=== PATIENT | female | born 1985 | race Caucasian/White ===

== ENCOUNTER 2018-10-22 12:29 | Emergency (ER) | payer OTHER ==
[~2018-10-22] VITALS: Ht 165.1 cm; Wt 80.3 kg
[2018-10-22] MEDS ORDERED: KETOROLAC 30 MG/ML VIAL. IV ONE (12:45)
[2018-10-22] MEDS ORDERED: IV NORMAL SALINE 1,000ML 1,000 ML IV ONE (12:45)
[2018-10-22] MEDS ORDERED: ONDANSETRON PF 4 MG/2 ML VIAL. IV ONE (12:45)
[2018-10-22 12:53] LABS: BASO % 0 % (0-3); EOS % 0 % (0-3); HEMATOCRIT 40.4 % (36.0-47.0); HEMOGLOBIN 13.8 g/dL (12.0-15.5); LYMPH # 0.8 x10^3/uL (1.0-4.8); LYMPH % 6 % (24-48); MEAN CORPUSCULAR HEMOGLOBIN 34 pg (25-35); MEAN CORPUSCULAR HGB CONC 34 g/dL (31-37); MEAN CORPUSCULAR VOLUME 99 fL (79-100); MONO # 0.7 x10^3/uL (0.0-1.1); MONO % 6 % (0-9); NEUT # 11.9 x10^3uL (1.8-7.7); NEUT % 88 % (31-73); PLATELET COUNT 217 x10^3/uL (140-400); RED CELL DISTRIBUTION WIDTH 13.6 % (11.5-14.5); WHITE BLOOD COUNT 13.5 x10^3/uL (4.0-11.0)
[2018-10-22 13:06] LABS: ALBUMIN 3.8 g/dL (3.4-5.0); ALBUMIN/GLOBULIN RATIO 0.9 (1.0-1.7); CALCIUM 9.2 mg/dL (8.5-10.1); CREATININE 1.3 mg/dL (0.6-1.0); GFR 47.2; POTASSIUM 3.3 mmol/L (3.5-5.1); TOTAL BILIRUBIN 0.9 mg/dL (0.2-1.0); TOTAL PROTEIN 7.9 g/dL (6.4-8.2)
--- NOTE | 2018-10-22 13:13 | PHYS DOC ---
Past History Past Medical History: No Pertinent History Past Surgical History: No Surgical History Drug Use: None Adult General Chief Complaint Chief Complaint: ABDOMINAL PAIN HPI HPI 33-year-old female presents with epigastric abdominal pain. The patient has had intermittent pain for last 5 months. She has seen her PCP who scheduled an ultrasound of the right upper quadrant, but the study has not been completed yet. The patient presents today because she has had a significant increase in her epigastric pain for the last 3 days. It is nearly constant and a moderate to severe cramping. It comes and goes in waves. She's been unable to keep down any solid food. She is able to drink water sometimes. She is still having 4-6 episodes of emesis and/or diarrhea today. She's also had measured fever at home up to 103. Review of Systems Review of Systems Constitutional: Fever and chills[] Eyes: Denies change in visual acuity, redness, or eye pain [] HENT: Denies nasal congestion or sore throat [] Respiratory: Denies cough or shortness of breath [] Cardiovascular: No additional information not addressed in HPI [] GI: abdominal pain, nausea, vomiting, diarrhea [] : Denies dysuria or hematuria [] Musculoskeletal: Denies back pain or joint pain [] Integument: Denies rash or skin lesions [] Neurologic: Denies headache, focal weakness or sensory changes [] Endocrine: Denies polyuria or polydipsia [] All other systems were reviewed and found to be within normal limits, except as documented in this note. Current Medications Current Medications Current Medications Medications (Trade) Dose Ordered Sig/[facility] Start Time Stop Time Status Last Admin Dose Admin Ketorolac Tromethamine (Toradol 30mg Vial) 30 mg 1X ONCE 10/22/18 12:45 10/22/18 12:46 DC 10/22/18 12:58 30 MG Ondansetron HCl (Zofran) 4 mg 1X ONCE 10/22/18 12:45 10/22/18 12:46 DC 10/22/18 12:57 4 MG Sodium Chloride 1,000 ml @ 1,000 mls/hr 1X ONCE 10/22/18 12:45 10/22/18 13:44 10/22/18 12:55 1,000 MLS/HR Allergies Allergies Allergies Coded Allergies Type Severity Reaction Last Updated Verified Iodinated Contrast- Oral and IV Dye Allergy Severe Anaphylaxis 10/22/18 Yes Sulfa (Sulfonamide Antibiotics) Allergy Unknown 10/22/18 Yes Physical Exam Physical Exam Constitutional: Well developed, well nourished, no acute distress, non-toxic appearance. [] HENT: Normocephalic, atraumatic, bilateral external ears normal, oropharynx moist, no oral exudates, nose normal. [] Eyes: PERRLA, EOMI, conjunctiva normal, no discharge. [] Neck: Normal range of motion, no tenderness, supple, no stridor. [] Cardiovascular:Heart rate regular rhythm, no murmur [] Lungs & Thorax: Bilateral breath sounds clear to auscultation [] Abdomen: Bowel sounds normal, soft, moderate to severe tenderness of the right upper quadrant and epigastric region, no masses, no pulsatile masses. [] Skin: Warm, dry, no erythema, no rash. [] Back: No tenderness, no CVA tenderness. [] Extremities: No tenderness, no cyanosis, no clubbing, ROM intact, no edema. [] Neurologic: Alert and oriented X 3, normal motor function, normal sensory function, no focal deficits noted. [] Psychologic: Affect normal, judgement normal, mood normal. [] Current Patient Data Vital Signs Vital Signs Date Time Temp Pulse Resp B/P (MAP) Pulse Ox O2 Delivery O2 Flow Rate FiO2 10/22/18 13:00 106 20 104/58 (73) 100 Room Air 10/22/18 12:30 97.8 Lab Results Laboratory Tests Test 10/22/18 12:30 White Blood Count 13.5 x10^3/uL (4.0-11.0) H Red Blood Count 4.10 x10^6/uL (3.50-5.40) Hemoglobin 13.8 g/dL (12.0-15.5) Hematocrit 40.4 % (36.0-47.0) Mean Corpuscular Volume 99 fL (79-100) Mean Corpuscular Hemoglobin 34 pg (25-35) Mean Corpuscular Hemoglobin Concent 34 g/dL (31-37) Red Cell Distribution Width 13.6 % (11.5-14.5) Platelet Count 217 x10^3/uL (140-400) Neutrophils (%) (Auto) 88 % (31-73) H Lymphocytes (%) (Auto) 6 % (24-48) L Monocytes (%) (Auto) 6 % (0-9) Eosinophils (%) (Auto) 0 % (0-3) Basophils (%) (Auto) 0 % (0-3) Neutrophils # (Auto) 11.9 x10^3uL (1.8-7.7) H Lymphocytes # (Auto) 0.8 x10^3/uL (1.0-4.8) L Monocytes # (Auto) 0.7 x10^3/uL (0.0-1.1) Eosinophils # (Auto) 0.0 x10^3/uL (0.0-0.7) Basophils # (Auto) 0.0 x10^3/uL (0.0-0.2) Sodium Level 138 mmol/L (136-145) Potassium Level 3.3 mmol/L (3.5-5.1) L Chloride Level 101 mmol/L (98-107) Carbon Dioxide Level 22 mmol/L (21-32) Anion Gap 15 (6-14) H Blood Urea Nitrogen 16 mg/dL (7-20) Creatinine 1.3 mg/dL (0.6-1.0) H Estimated GFR (Cockcroft-Gault) 47.2 BUN/Creatinine Ratio 12 (6-20) Glucose Level 95 mg/dL (70-99) Calcium Level 9.2 mg/dL (8.5-10.1) Total Bilirubin 0.9 mg/dL (0.2-1.0) Aspartate Amino Transferase (AST) 67 U/L (15-37) H Alanine Aminotransferase (ALT) 37 U/L (14-59) Alkaline Phosphatase 140 U/L (46-116) H Total Protein 7.9 g/dL (6.4-8.2) Albumin 3.8 g/dL (3.4-5.0) Albumin/Globulin Ratio 0.9 (1.0-1.7) L Lipase 58 U/L (73-393) L EKG EKG [] Radiology/Procedures Radiology/Procedures [] Impressions: Limited abdomen ultrasound study Clinical indications: Right upper quadrant abdominal pain. FINDINGS: The pancreas is poorly visualized due to overlying bowel gas. The intrahepatic portion of the IVC is unremarkable. The liver measures 19.8 centimeters in length which is mildly enlarged. There is a calcification within the right lobe of the liver. No hepatic mass is seen otherwise. The main portal vein is mildly dilated measuring up to 2 cm. Gallbladder is mildly distended measuring 8.5 cm. A small amount of biliary sludge is seen within the gallbladder. No gallbladder wall thickening or pericholecystic free fluid is evident. The extra hepatic bile duct measures 1.8 mm in caliber which is normal. The length of the right kidney is 12.3 cm. No hydronephrosis or renal mass or perinephric fluid collection is seen on the right side. IMPRESSION: Mild hepatomegaly. Mild dilatation of the main portal vein. Hepatopedal flow is seen within the main portal vein and therefore is patent. Mild distention of the gallbladder without gallbladder wall thickening or gallstones. A small amount of biliary sludge is seen within the gallbladder. Electronically signed by: Mayte Winston MD (10/22/2018 1:09 PM) [id number] DICTATED AND SIGNED BY: MAYTE WINSTON MD DATE: 10/22/18 1309 CC: KARTHIK MUÑOZ DO; CLEOPATRA DUFF MD ~ Course & Med Decision Making Course & Med Decision Making Pertinent Labs and Imaging studies reviewed. (See chart for details) The patient is tachycardic at 105. I have given the patient 1 L normal saline, 4 mg of Zofran, 30 mg of Toradol. This is not an effective for her pain. I have added an additional 4 mg of morphine. Ultrasound is pending. Ultrasound shows some mild dilation of the gallbladder. Shows some sludge, but no stones or obstruction. He does seem likely the patient has gallbladder disease, but there is no emergent need for it to be removed at this time. I'll advise that she follow up with her PCP and consider surgical consult. I will discharge her with [place] 5/325 as well as Zofran. [] Dragon Disclaimer Dragon Disclaimer This electronic medical record was generated, in whole or in part, using a voice recognition dictation system. Departure Departure: Impression: Primary Impression: Gall bladder disease Additional Impression: Epigastric abdominal pain Disposition: HOME, SELF-CARE Condition: STABLE Referrals: CLEOPATRA DUFF MD (PCP) Patient Instructions: Abdominal Pain, Women Scripts Ondansetron (ONDANSETRON ODT) 4 Mg Tab.rapdis 1 TAB PO PRN Q6-8HRS PRN for VOMITING, #16 TAB Prov: KARTHIK MUÑOZ DO 10/22/18 Hydrocodone Bit/Acetaminophen ([place] 5-325 TABLET) 1 Each Tablet 1 TAB PO PRN Q6HRS PRN for PAIN, #14 TAB 0 Refills Prov: KARTHIK MUÑOZ DO 10/22/18 Problem Qualifiers KARTHIK MUÑOZ DO Oct 22, 2018 13:13
[2018-10-22 13:22] VITALS: BP 107/70
[2018-10-22] MEDS ORDERED: MORPHINE SULFATE 4 MG/ML DISP.SYRIN. IV ONE (13:30)
[2018-10-22] MEDS ORDERED: ONDA4TAB12 PO (13:48)
[2018-10-22] MEDS ORDERED: HYDR-3165 PO (13:48)
[2018-10-22] MEDS ORDERED: HYDROcodone/APAP 5/325MG 1 TAB TABLET PO ONE (14:15)
== END 2018-10-22 14:22 | disposition home or self-care (01) ==
LOC: ER 12:29
DX: K82.8 Other specified diseases of gallbladder (principal); R11.2 Nausea with vomiting, unspecified; R19.7 Diarrhea, unspecified; Z88.2 Allergy status to sulfonamides; Z91.041 Radiographic dye allergy status
CPT/HCPCS: 36415; 76705; 80053; 83690; 85025; 96361; 96374; 96375; 99285; J1885; J2270; J2405; J7030

== ENCOUNTER 2020-01-28 09:37 | Emergency (ER) | payer OTHER ==
[~2020-01-28] VITALS: Ht 165.1 cm; Wt 83.3 kg
[~2020-01-28 09:37] MED LIST: HYDR-3165 PO; ONDA4TAB12 PO
--- NOTE | 2020-01-28 10:11 | PHYS DOC ---
Past History Past Medical History: Anxiety Past Surgical History: Cholecystectomy Alcohol Use: Rarely Drug Use: None Adult General Chief Complaint Chief Complaint: NAUSEA/VOMITING/DIARRHEA HPI HPI Patient is a 34-year-old female who presents with nausea and vomiting. Patient was seen 1 week ago at [facility] for similar symptoms in addition to dysuria. Per patient report, she was diagnosed with a UTI and right kidney infection and sent home on Augmentin. Patient continued to have generalized nausea and felt unwell prompting her to seek PCP later in the week. PCP discus sed case with patient on the phone and subsequently sent her to her local ER, for which she visited another [facility] location, and had comprehensive work- up performed. Per patient, nothing emergent resulted from said visit but she did have her antibiotics changed from Augmentin to Cipro. She is unsure why. She has been taking Cipro daily since, she is currently on day 3 of therapy. She continues to have nausea, several episodes of vomit which is non-bloody and nonbilious in nature, exacerbated with attempted p.o. intake. She reports having several episodes of looser stools but denies diarrhea greater than 3 times per day. Patient presents today because she is not getting any better. Patient has been taking Zofran PRN for nausea without significant relief. Of note, patient has been afebrile the whole time, denies any known COVID-19 contacts, denies any recent travel, concerning ingestions or other exposures. Review of Systems Review of Systems Fourteen body systems of review of systems have been reviewed. See HPI for pertinent positives and negative responses, other marquez all other systems are negative, non-pertinent or non-contributory Allergies Allergies Allergies Coded Allergies Type Severity Reaction Last Updated Verified Iodinated Contrast- Oral and IV Dye Allergy Severe Anaphylaxis 10/22/18 Yes Sulfa (Sulfonamide Antibiotics) Allergy Unknown 10/22/18 Yes Physical Exam Physical Exam Constitutional: Well developed, well nourished, appears dehydrated, mild distress, non-toxic appearance. HENT: Normocephalic, atraumatic, bilateral external ears normal, oropharynx moist, no oral exudates, nose normal. Eyes: PERRLA, EOMI, conjunctiva normal, no discharge. Neck: Normal range of motion, no tenderness, supple, no stridor. Cardiovascular: Heart rate regular, sinus rhythm, no murmurs rubs or gallops Lungs & Thorax: Bilateral breath sounds clear to auscultation Abdomen: Bowel sounds normal, soft, mild guarding present, generalized tenderness with palpation, no rebound, no masses, no pulsatile masses. Nonsurgical abdomen, no peritoneal signs Skin: Warm, dry, no erythema, no rash. Back: No tenderness, no CVA tenderness. Extremities: No tenderness, no cyanosis, no clubbing, ROM intact, no edema. Neurologic: Alert and oriented X 3, grossly normal motor & sensory function, no focal deficits noted. Psychologic: Affect normal, judgement normal, anxious mood. Current Patient Data Vital Signs Vital Signs Date Time Temp Pulse Resp B/P (MAP) Pulse Ox O2 Delivery O2 Flow Rate FiO2 01/28/20 09:55 98.0 121 16 134/93 (107) 98 Room Air Lab Results Laboratory Tests Test 01/28/20 10:30 01/28/20 10:35 Urine Collection Type Unknown Urine Color Yellow Urine Clarity Clear Urine pH 6.0 Urine Specific Pace 1.025 Urine Protein Neg Urine Glucose (UA) Neg mg/dL Urine Ketones (Stick) Neg mg/dL Urine Blood Trace Urine Nitrite Neg Urine Bilirubin Neg Urine Urobilinogen Dipstick 0.2 mg/dL Urine Leukocyte Esterase Neg Urine RBC Occ /HPF Urine WBC 1-4 /HPF Urine Squamous Epithelial Cells Mod /LPF Urine Bacteria 0 /HPF Urine Mucus Mod /LPF Urine Test Negative White Blood Count 7.4 x10^3/uL Red Blood Count 4.38 x10^6/uL Hemoglobin 14.9 g/dL Hematocrit 43.3 % Mean Corpuscular Volume 99 fL Mean Corpuscular Hemoglobin 34 pg Mean Corpuscular Hemoglobin Concent 35 g/dL Red Cell Distribution Width 13.1 % Platelet Count 214 x10^3/uL Neutrophils (%) (Auto) 74 % Lymphocytes (%) (Auto) 22 % Monocytes (%) (Auto) 4 % Eosinophils (%) (Auto) 0 % Basophils (%) (Auto) 1 % Neutrophils # (Auto) 5.5 x10^3uL Lymphocytes # (Auto) 1.6 x10^3/uL Monocytes # (Auto) 0.3 x10^3/uL Eosinophils # (Auto) 0.0 x10^3/uL Basophils # (Auto) 0.0 x10^3/uL Sodium Level 140 mmol/L Potassium Level 3.8 mmol/L Chloride Level 105 mmol/L Carbon Dioxide Level 20 mmol/L Anion Gap 15 Blood Urea Nitrogen 16 mg/dL Creatinine 1.0 mg/dL Estimated GFR (Cockcroft-Gault) 63.5 BUN/Creatinine Ratio 16 Glucose Level 105 mg/dL Lactic Acid Level 1.9 mmol/L Calcium Level 8.5 mg/dL Total Bilirubin 0.5 mg/dL Aspartate Amino Transf (AST/SGOT) 71 U/L Alanine Aminotransferase (ALT/SGPT) 59 U/L Alkaline Phosphatase 86 U/L Creatine Kinase 50 U/L Total Protein 7.5 g/dL Albumin 3.9 g/dL Albumin/Globulin Ratio 1.1 Lipase 51 U/L Current Medications Medications (Trade) Dose Ordered Sig/Noemy Route PRN Reason Start Time Stop Time Status Last Admin Dose Admin Sodium Chloride (Normal Saline Flush) 10 ml QSHIFT PRN IV AFTER MEDS AND BLOOD DRAWS 01/28/20 10:15 01/28/20 13:37 DC Prochlorperazine Edisylate (Compazine) 10 mg 1X ONCE IM 01/28/20 11:15 01/28/20 11:16 DC 01/28/20 11:26 Ketorolac Tromethamine (Toradol 15mg Vial) 15 mg 1X ONCE IVP 01/28/20 11:30 01/28/20 11:31 DC 01/28/20 11:26 EKG EKG EKG ordered and interpreted by myself at 1107 hrs. shows normal sinus rhythm at 86 bpm, QTc 458 otherwise unremarkable intervals, no axis deviation, no ischemic findings, no STEMI Radiology/Procedures Radiology/Procedures PROCEDURE: PORTABLE CHEST 1V PORTABLE CHEST 1V INDICATION: Reason: SHORTNESS OF BREATH / Spl. Instructions: / History: . COMPARISON STUDY: None. FINDINGS: Lungs: Normal lung volume. No pulmonary mass or consolidation. The tracheobronchial tree and hilar structures are normal. Pleura: No pleural effusion or pneumothorax. Heart and Mediastinum: The cardiomediastinal silhouette is normal. The great vessels of the thorax are normal. Bones and Soft Tissues: The bones and soft tissues are within normal limits. IMPRESSION: No acute cardiopulmonary process. Electronically signed by: Javid Rosales MD (01/28/2020 10:48 AM) [id number] PROCEDURE: CT ABDOMEN PELVIS WO CONTRAST CT ABDOMEN PELVIS WO CONTRAST History: Reason: NAUSEA, VOMITING, DIARRHEA, RECENT RIGHT PYELONEPHRITIS / Spl. Instructions: / History: Technique: Noncontrast examination of the abdomen and pelvis. Coronal and sagittal reconstructions were performed. Exposure: One or more of the following individualized dose reduction techniques were utilized for this examination: 1. Automated exposure control 2. Adjustment of the mA and/or kV according to patient size 3. Use of iterative reconstruction technique. Comparison: None Findings: Lower chest: No consolidation or pleural effusion. Abdomen and pelvis: Small left hepatic cyst measures 7 mm. The spleen, adrenal glands, and pancreas are unremarkable. Prior cholecystectomy. Bilateral nonobstructing renal calculi. No hydronephrosis. No ureteral or urinary bladder calculi. Decompressed urinary bladder. Rectum and sigmoid colonic wall thickening. Normal appendix. No evidence of bowel obstruction. No pathologic lymphadenopathy. No ascites. Pelvic contents are unremarkable. Bones: No pathologic osseous lesions. Impression: 1. Sigmoid colonic and rectal wall thickening, may represent colitis. 2. Bilateral nonobstructing renal calculi. No hydronephrosis. 3. Prior cholecystectomy. Electronically signed by: Franko Allen DO (01/28/2020 12:58 PM) [facility] Course & Med Decision Making Course & Med Decision Making Patient presented to our ER, self ambulatory on arrival, and evaluated by myself on rooming Tachycardic on arrival otherwise vital signs stable, comprehensive history and physical exam obtained Attempts were made to contact [facility] for which patient had recent hospitalizations to obtain records, these were not received in a timely fashion for use during this ER visit Subsequent laboratory and imaging studies ordered and reviewed by myself IV access obtained and patient received IV antiemetics and aggressive IV fluid resuscitation, she responded well to this Patient reevaluated several times throughout ER course, reports moderate improvement in symptoms. Discussed findings of colitis with patient, discussed this was likely cause of patient's ongoing symptoms. Discussed need to continue Cipro antibiotic for previously diagnosed urine/kidney infection because it would also cover current colitis infection. Recommended admission to patient given numerous ED visits and symptomology that has not grossly improved, she deferred. Patient wanted to be discharged home and attempt self-care as she had good support from he will be home to assist with her care. Patient to be discharged home with instructions to continue previously prescribed Cipro to completion for acute infection coverage, patient to continue as needed use of previously prescribed Zofran, I will prescribe p.o. Phenergan for adjunct use for as needed nausea. Discussed with patient this may be an acute presentation of more serious pathology. Strict return precautions were discussed extensively with good understanding shown by patient, all questions and concerns addressed prior to ER departure Margarita Disclaimer Margarita Disclaimer This electronic medical record was generated, in whole or in part, using a voice recognition dictation system. Departure Departure: Impression: Primary Impression: Colitis Additional Impressions: Nausea & vomiting Recent urinary tract infection Disposition: HOME/RESIDENCE PRIOR TO ADM Condition: IMPROVED Referrals: J CARLOS WONG (PCP) Patient Instructions: Colitis Additional Instructions: As discussed prior to ER departure, ensure you take your previously prescribed ciprofloxacin antibiotic Use Zofran and Phenergan in an alternating fashion for nausea use as needed Ensure you follow-up with your primary care physician in the upcoming 24 to 48 hours to ensure improvement in symptomatology, you may also want to discuss indication for outpatient gastroenterology referral Return to the Emergency Department if you experience worsening pain, persistent fevers greater than 100.4, recurrent vomiting, blood in vomit, blood in stool, dark tarry stool, chest pain, difficulty breathing, or any other concerning symptoms. Scripts Promethazine Hcl (PROMETHAZINE HCL) 12.5 Mg Tablet 1 TAB PO Q6-8HRS for Nausea for 5 Days, #10 TAB 0 Refills Prov: CARTER GONZALEZ DO 01/28/20 Justification of Admission: Justification of Admission: Justification of Admission Dx: N/A Problem Qualifiers CARTER GONZALEZ DO Jan 28, 2020 10:11
[2020-01-28] MEDS ORDERED: 0.9 % SODIUM CHLORIDE 10 ML DISP.SYRIN. IV PRN (10:15)
--- NOTE | 2020-01-28 10:51 | RAD ---
PORTABLE CHEST 1V INDICATION: Reason: SHORTNESS OF BREATH / Spl. Instructions: / History: . COMPARISON STUDY: None. FINDINGS: Lungs: Normal lung volume. No pulmonary mass or consolidation. The tracheobronchial tree and hilar structures are normal. Pleura: No pleural effusion or pneumothorax. Heart and Mediastinum: The cardiomediastinal silhouette is normal. The great vessels of the thorax are normal. Bones and Soft Tissues: The bones and soft tissues are within normal limits. IMPRESSION: No acute cardiopulmonary process. Electronically signed by: Javid Rosales MD (01/28/2020 10:48 AM) [id number]
[2020-01-28 10:52] LABS: BASO % 1 % (0-3); EOS % 0 % (0-3); HEMATOCRIT 43.3 % (36.0-47.0); HEMOGLOBIN 14.9 g/dL (12.0-15.5); LYMPH # 1.6 x10^3/uL (1.0-4.8); LYMPH % 22 % (24-48); MEAN CORPUSCULAR HEMOGLOBIN 34 pg (25-35); MEAN CORPUSCULAR HGB CONC 35 g/dL (31-37); MEAN CORPUSCULAR VOLUME 99 fL (79-100); MONO # 0.3 x10^3/uL (0.0-1.1); MONO % 4 % (0-9); NEUT # 5.5 x10^3uL (1.8-7.7); NEUT % 74 % (31-73); PLATELET COUNT 214 x10^3/uL (140-400); RED BLOOD COUNT 4.38 x10^6/uL (3.50-5.40); RED CELL DISTRIBUTION WIDTH 13.1 % (11.5-14.5); WHITE BLOOD COUNT 7.4 x10^3/uL (4.0-11.0)
[2020-01-28 11:05] LABS: CALCIUM 8.5 mg/dL (8.5-10.1); GFR 63.5; POTASSIUM 3.8 mmol/L (3.5-5.1)
[2020-01-28 11:06] LABS: BACTERIA,URINE 0 /HPF (0-FEW); BILIRUBIN,URINE NEG (NEG); CLARITY,URINE CLEAR; COLOR,URINE YELLOW; GLUCOSE,URINE NEG (NEG); NITRITE,URINE NEG (NEG); RBC,URINE OCC /HPF (0-2); SQUAMOUS EPITHELIAL CELL,UR MOD /LPF; UROBILINOGEN,URINE 0.2 mg/dL (0.2 mg/dL)
[2020-01-28 11:10] LABS: ALBUMIN 3.9 g/dL (3.4-5.0); ALBUMIN/GLOBULIN RATIO 1.1 (1.0-1.7); TOTAL BILIRUBIN 0.5 mg/dL (0.2-1.0); TOTAL PROTEIN 7.5 g/dL (6.4-8.2)
[2020-01-28] MEDS ORDERED: PROCHLORPERAZINE 10 MG/2 ML VIAL. IM ONE (11:15)
--- NOTE | 2020-01-28 11:24 | EKG ---
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
[2020-01-28] MEDS ORDERED: KETOROLAC 15 MG/ML VIAL. IVP ONE (11:30)
[2020-01-28 11:55] LABS: U PREG PATIENT NEGATIVE (NEG)
--- NOTE | 2020-01-28 13:01 | RAD ---
CT ABDOMEN PELVIS WO CONTRAST History: Reason: NAUSEA, VOMITING, DIARRHEA, RECENT RIGHT PYELONEPHRITIS / Spl. Instructions: / History: Technique: Noncontrast examination of the abdomen and pelvis. Coronal and sagittal reconstructions were performed. Exposure: One or more of the following individualized dose reduction techniques were utilized for this examination: 1. Automated exposure control 2. Adjustment of the mA and/or kV according to patient size 3. Use of iterative reconstruction technique. Comparison: None Findings: Lower chest: No consolidation or pleural effusion. Abdomen and pelvis: Small left hepatic cyst measures 7 mm. The spleen, adrenal glands, and pancreas are unremarkable. Prior cholecystectomy. Bilateral nonobstructing renal calculi. No hydronephrosis. No ureteral or urinary bladder calculi. Decompressed urinary bladder. Rectum and sigmoid colonic wall thickening. Normal appendix. No evidence of bowel obstruction. No pathologic lymphadenopathy. No ascites. Pelvic contents are unremarkable. Bones: No pathologic osseous lesions. Impression: 1. Sigmoid colonic and rectal wall thickening, may represent colitis. 2. Bilateral nonobstructing renal calculi. No hydronephrosis. 3. Prior cholecystectomy. Electronically signed by: Franko Allen DO (01/28/2020 12:58 PM) [facility]
[2020-01-28] MEDS ORDERED: PROM12.58 PO (13:23)
[2020-01-28 13:37] VITALS: BP 124/65
== END 2020-01-28 13:34 | disposition home or self-care (01) ==
LOC: ER 09:37
DX: K52.9 Noninfective gastroenteritis and colitis, unspecified (principal); N39.0 Urinary tract infection, site not specified; R11.2 Nausea with vomiting, unspecified; F41.9 Anxiety disorder, unspecified; Z88.2 Allergy status to sulfonamides; Z91.041 Radiographic dye allergy status
CPT/HCPCS: 36415; 71045; 74176; 80053; 81001; 81025; 82550; 83605; 83690; 85025; 87040; 93005; 96372; 96374; 99285; J0780; J1885

== ENCOUNTER 2020-01-30 05:24 | Emergency (ER) | payer OTHER ==
[~2020-01-30] VITALS: Ht 165.1 cm; Wt 83.3 kg
[~2020-01-30 05:24] MED LIST changes: +PROM12.58 PO
--- NOTE | 2020-01-30 05:32 | PHYS DOC ---
Past History Past Medical History: Anxiety, GERD, IBS, Kidney Stones, Ovarian Cyst, UTI (ARLINE SANTANA MD) Past Medical History: Anxiety (JEROME MORALES DO) Past Surgical History: Cholecystectomy, (ARLINE SANTANA MD) Past Surgical History: Cholecystectomy, (JEROME MORALES DO) Alcohol Use: Rarely Drug Use: None (ARLINE SANTANA MD) Smoking: Cigarettes Alcohol Use: Occasionally (JEROME MORALES DO) General Adult EDM: Chief Complaint: RLQ abdominal pain HPI: HPI: "....I was here the other day...but .. I am no better.. the pain seems more localized down here on the right.. I have not really eaten anything since some soup yesterday morning..." Patient is a 34 year old female who presents with above hx and complaints of generalized abdomen pain. Pt. does report some increase localization to Rt. lower quadrant this morning. Pt. seen on 01/27 and discharged with Dx. of Colitis, N/V and UTI. Patient denies any recent travel outside the [facility]. Patient denies any intake of bad food. Patient denies any history of trauma. Has had problems in the past with colitis, ovarian cysts, IBS, GERD. Patient has had a cholecystectomy for gallstones. Hx C- Sections. No specific ill contacts. No history of vaginal discharge. No history of STDs. Pt. normally follows at [place]. (ARLINE SANTANA MD) HPI: Pt is a 34 y/o female who presents for evaluation of worsening right lower abdominal pain over the past 18 hours. She has repeated episodes of nausea, vomiting and diarrhea. Pt states symptoms do wax and wane. She has malaise and a low appetite. Pt denied vaginal complaints. Pt has recently been diagnosed with colitis and a urinary infection. Pt had a CT scan abd/pelvis done on 01/28/20 that showed colitis and a non-obstructing kidney stone. Pt has had a prior cholecystectomy. Pt is in moderate distress on arrival. Pt is not and her last period was several days ago. (JEROME MORALES DO) Review of Systems: Review of Systems: Constitutional: Denies fever or chills Eyes: Denies change in visual acuity HENT: Denies nasal congestion or sore throat Respiratory: Denies cough or shortness of breath Cardiovascular: Denies chest pain or edema GI: Complaints of abdominal pain, nausea, diarrhea : Denies dysuria Musculoskeletal: Denies back pain or joint pain Integument: Denies rash Neurologic: Denies headache, focal weakness or sensory changes Endocrine: Denies polyuria or polydipsia Lymphatic: Denies swollen glands Psychiatric: Denies depression or anxiety (ARLINE SANTANA MD) Heart Score: Risk Factors: Risk Factors: DM, Current or recent (<one month) smoker, HTN, HLP, family history of CAD, obesity. Risk Scores: Score 0 - 3: 2.5% MACE over next 6 weeks - Discharge Home Score 4 - 6: 20.3% MACE over next 6 weeks - Admit for Clinical Observation Score 7 - 10: 72.7% MACE over next 6 weeks - Early Invasive Strategies (ARLINE SANTANA MD) Family History: Family History: Noncontributory (ARLINE SANTANA MD) Current Medications: Current Meds: See nursing for home meds (ARLINE SANTANA MD) Allergies: Allergies: Allergies Coded Allergies Type Severity Reaction Last Updated Verified Iodinated Contrast- Oral and IV Dye Allergy Severe Anaphylaxis 10/22/18 Yes Sulfa (Sulfonamide Antibiotics) Allergy Unknown 10/22/18 Yes (ARLINE SANTANA MD) Physical Exam: PE: Constitutional: in moderate to acute distress, non-toxic appearance. [] HENT: Normocephalic, atraumatic, bilateral external ears normal, oropharynx moist, no oral exudates, nose normal. [] Eyes: PERRLA, EOMI, conjunctiva normal, no discharge. [] Neck: Normal range of motion, no tenderness, supple, no stridor. [] Cardiovascular: Tachycardia heart rate regular rhythm, no murmur [] Lungs & Thorax: Bilateral breath sounds equal at apex on auscultation . Few scattered wheezes. Abdomen: Bowel sounds hyperactive , soft, generalized tenderness, no localized patient to right lower quadrant , rebound to right lower quadrant no masses, no pulsatile masses. [] Old surgery scars Skin: Warm, dry, no erythema, no rash. [] Back: No tenderness, mild right CVA tenderness. [] Extremities: No tenderness, no cyanosis, no clubbing, ROM intact, no edema. [] Positive psoas sign on right Neurologic: Alert and oriented X 3, normal motor function, normal sensory function, no focal deficits noted. [] Psychologic: Affect anxious, judgement normal, mood normal. [] (ARLINE SANTANA MD) PE: Gen; mild distress eye: PERRL, clear nose: clear, no bleeding mouth: clear, no exuduates neck; supple, non-tender chest: clear to auscultation abd: tender right lower abdomen, mild guarding present skin: no rashes ext: normal, full ROM neuro: no deficits, steady gait : tender right adnexa, scant clear discharge, ox closed (JEROME MORALES DO) Current Patient Data: Labs: Laboratory Tests Test 01/30/20 05:40 01/30/20 05:53 White Blood Count 6.1 x10^3/uL Red Blood Count 4.22 x10^6/uL Hemoglobin 14.7 g/dL Hematocrit 42.0 % Mean Corpuscular Volume 100 fL Mean Corpuscular Hemoglobin 35 pg Mean Corpuscular Hemoglobin Concent 35 g/dL Red Cell Distribution Width 13.1 % Platelet Count 197 x10^3/uL Neutrophils (%) (Auto) 51 % Lymphocytes (%) (Auto) 41 % Monocytes (%) (Auto) 5 % Eosinophils (%) (Auto) 2 % Basophils (%) (Auto) 1 % Neutrophils # (Auto) 3.1 x10^3uL Lymphocytes # (Auto) 2.5 x10^3/uL Monocytes # (Auto) 0.3 x10^3/uL Eosinophils # (Auto) 0.1 x10^3/uL Basophils # (Auto) 0.1 x10^3/uL Prothrombin Time 10.9 SEC Prothromb Time International Ratio 1.1 Activated Partial Thromboplast Time 22 SEC Urine Collection Type Unknown Urine Color Yellow Urine Clarity Clear Urine pH 6.5 Urine Specific [place] 1.020 Urine Protein Neg Urine Glucose (UA) Neg mg/dL Urine Ketones (Stick) Neg mg/dL Urine Blood Trace Urine Nitrite Neg Urine Bilirubin Neg Urine Urobilinogen Dipstick 0.2 mg/dL Urine Leukocyte Esterase Neg Urine RBC 3-5 /HPF Urine WBC 1-4 /HPF Urine Squamous Epithelial Cells Few /LPF Urine Bacteria Few /HPF Sodium Level 137 mmol/L Potassium Level 3.7 mmol/L Chloride Level 102 mmol/L Carbon Dioxide Level 18 mmol/L Anion Gap 17 Blood Urea Nitrogen 16 mg/dL Creatinine 1.0 mg/dL Estimated GFR (Cockcroft-Gault) 63.5 Glucose Level 106 mg/dL Calcium Level 7.8 mg/dL Total Bilirubin 0.6 mg/dL Direct Bilirubin 0.1 mg/dL Aspartate Amino Transf (AST/SGOT) 60 U/L Alanine Aminotransferase (ALT/SGPT) 54 U/L Alkaline Phosphatase 83 U/L Total Protein 7.2 g/dL Albumin 3.9 g/dL Amylase Level 61 U/L Lipase 111 U/L Urine Opiates Screen Neg Urine Methadone Screen Neg Urine Barbiturates Neg Urine Phencyclidine Screen Neg Urine Amphetamine/Methamphetamine Neg Urine Benzodiazepines Screen Neg Urine Cocaine Screen Neg Urine Cannabinoids Screen Neg Urine Ethyl Alcohol Neg Bedside Urine HCG, Qualitative hcg negative Current Medications Medications (Trade) Dose Ordered Sig/Noemy Route PRN Reason Start Time Stop Time Status Last Admin Dose Admin Lactated Ringer's 1,000 ml @ 1,000 mls/hr Q1H IV 01/30/20 05:45 01/30/20 06:44 01/30/20 05:57 Ondansetron HCl (Zofran) 8 mg 1X ONCE IVP 01/30/20 05:45 01/30/20 05:49 DC 01/30/20 05:57 Famotidine (Pepcid Vial) 20 mg 1X ONCE IVP 01/30/20 05:45 01/30/20 05:49 DC 01/30/20 05:56 Ketorolac Tromethamine (Toradol 30mg Vial) 30 mg 1X ONCE IVP 01/30/20 05:45 01/30/20 05:49 DC 01/30/20 05:57 (JEROME MORALES DO) EKG: EKG: Pending at shift change [] (ARLINE SANTANA MD) EKG: EKG: sinus tachy, rate 107, inverted T wave lead III, not STEMI, otherwise unremarkable EKG (JEROME MORALES DO) Radiology/Procedures: Radiology/Procedures: Pending at shift change [] (ARLINE SANTANA MD) Radiology/Procedures: [place] [address] IMAGING REPORT Signed PATIENT: ABDULAZIZ MO VACCOUNT: [id number] : 1985 LOCATION: ER AGE: 34 SEX: F EXAM STATUS: REG ER ORD. PHYSICIAN: ARLINE SANTANA MD REASON: Severe lower abdomen pain PROCEDURE: ACUTE ABDOMEN SERIES INDICATION: Reason: Severe lower abdomen pain / Spl. Instructions: / History: COMPARISON: CT abdomen from January 28, 2020 IMPRESSION: 3 views of the chest and abdomen obtained. Hypoexpanded examination of the lungs with mild interstitial prominence. This mild interstitial prominence could be secondary to crowding of the lung markings from hypoexpansion but mild pulmonary vascular congestion or small airway inflammation from pneumonitis can have this appearance. Cardiac silhouette is unremarkable. Surgical clips are upper quadrant which could be from post cholecystectomy changes. Air scattered throughout the large and small bowel in a grossly nonobstructive pattern. Electronically signed by: Alicia Cyr MD (01/30/2020 6:29 AM) [id number] DICTATED AND SIGNED BY: ALICIA CYR MD DATE: 01/30/20628 CC: J CARLOS WONG; ARLINE SANTANA MD; JEROME MORALES DO ~ Impressions: [place] [id number] IMAGING REPORT Signed PATIENT: ABDULAZIZ MO VACCOUNT: [id number] : 1985 LOCATION: ER AGE: 34 SEX: F EXAM STATUS: REG ER ORD. PHYSICIAN: CARTER GONZALEZ DO REASON: NAUSEA, VOMITING, DIARRHEA, RECENT RIGHT PYELONEPHRITIS PROCEDURE: CT ABDOMEN PELVIS WO CONTRAST CT ABDOMEN PELVIS WO CONTRAST History: Reason: NAUSEA, VOMITING, DIARRHEA, RECENT RIGHT PYELONEPHRITIS / Spl. Instructions: / History: Technique: Noncontrast examination of the abdomen and pelvis. Coronal and sagittal reconstructions were performed. Exposure: One or more of the following individualized dose reduction techniques were utilized for this examination: 1. Automated exposure control 2. Adjustment of the mA and/or kV according to patient size 3. Use of iterative reconstruction technique. Comparison: None Findings: Lower chest: No consolidation or pleural effusion. Abdomen and pelvis: Small left hepatic cyst measures 7 mm. The spleen, adrenal glands, and pancreas are unremarkable. Prior cholecystectomy. Bilateral nonobstructing renal calculi. No hydronephrosis. No ureteral or urinary bladder calculi. Decompressed urinary bladder. Rectum and sigmoid colonic wall thickening. Normal appendix. No evidence of bowel obstruction. No pathologic lymphadenopathy. No ascites. Pelvic contents are unremarkable. Bones: No pathologic osseous lesions. Impression: 1. Sigmoid colonic and rectal wall thickening, may represent colitis. 2. Bilateral nonobstructing renal calculi. No hydronephrosis. 3. Prior cholecystectomy. Electronically signed by: Franko Allen DO (01/28/2020 12:58 PM) [facility] DICTATED AND SIGNED BY: FRANKO ALLEN DO DATE: 01/28/201257 CC: CARTER GONZALEZ DO; J CARLOS WONG [place] [id number] IMAGING REPORT Signed PATIENT: ABDULAZIZ MO VACCOUNT: [id number] : 1985 LOCATION: ER AGE: 34 SEX: F EXAM STATUS: REG ER ORD. PHYSICIAN: JEROME MORALES DO REASON: pelvic pain/RLQ pain PROCEDURE: US PELVIS US PELVIS History: Pelvic pain, right lower quadrant pain Comparison: None. Findings: Multiple transabdominal sonographic images of the pelvis are submitted. Uterus measured 8.7 x 3.8 x 6.5 cm. Endometrium measured 0.9 cm in thickness. Right ovary measured 3.1 x 2.8 x 1.7 cm with normal low resistance vascularity. Left ovary measured 4 x 2.9 x 2.5 cm with normal low resistance vascularity. There is a hypoechoic lesion of of the left ovary about 2.4 cm greatest dimension. Reportedly there was bowel in the area of pain. No free fluid is demonstrated. Impression: 1. Other than a small left ovarian cyst, no significant abnormality is demonstrated. Electronically signed by: Denice Padilla MD (01/30/2020 8:19 AM) [id number] DICTATED AND SIGNED BY: DENICE PADILLA MD DATE: 01/30/20 0819 CC: J CARLOS WONG; JEROME MORALES DO ~ (JEROME MORALES DO) Course & Med Decision Making: Course & Med Decision Making Pertinent Labs and Imaging studies reviewed. (See chart for details) Patient endorsed to Dr. Morales at shift change. He will make disposition of pt. Impression: 1. Abdomen Pain [] (ARLINE SANTANA MD) Course & Med Decision Making 0642 stable, feeling somewhat better at this time. ED work-up thus far is essentially unremarkable. Patient is normal white blood cell count, hemoglobin, chemistries and urinalysis. Patient is not . Talk screen was negative. Will add Bentyl and Flagyl for treatment of the previously diagnosed colitis. Patient is already on Cipro. Differential diagnosis included colitis versus pyelonephritis, UTI, obstruction versus other dangerous reason for abdominal pain. There is no evidence on the CT scan 48 hours ago of appendicitis. Current white blood cell count remains normal 0835 stable, feeling better at this time. Patient states pain is now controlled. [place] work-up for evaluation of his right lower quadrant pain failed to reveal an exact diagnosis. Patient is a previously noted colitis as well as UTI. Lab work is essentially normal this morning. CT scan was not repeated since she just had one 2 days ago. Ultrasound showed no ovarian cyst or torsion. Pelvic exam was also unremarkable clinically. Patient is requesting something different for nausea as she has Zofran and Phenergan at home. Prescription for Reglan and Flagyl will be given. Patient already has called her GI specialist for close follow-up this week. No indication for admission at this time (JEROME MORALES DO) Dragon Disclaimer: Dragdunia Disclaimer: This electronic medical record was generated, in whole or in part, using a voice recognition dictation system. (ARLINE SANTANA MD) Departure Departure: Impression: Primary Impression: Right lower quadrant abdominal pain Additional Impressions: History of colitis Left ovarian cyst Disposition: HOME/RESIDENCE PRIOR TO ADM Condition: STABLE Referrals: J CARLOS WONG (PCP) Patient Instructions: Abdominal Pain, Colitis, Ovarian Cyst Additional Instructions: Drink plenty fluids, rest, medication as directed. Call and see your GI specialist right away this week. Return if fever develops, worsening pain or symptoms etc. your CT scan 2 days ago showed colitis. Your lab work including urinalysis was unremarkable. Ultrasound showed a left-sided ovarian cyst. No dangerous finding on the right side of your abdomen Scripts Metronidazole (METRONIDAZOLE) 500 Mg Tablet 1 TAB PO TID for colitis for 7 Days, #21 TAB 0 Refills Prov: JEROME MORALES DO 01/30/20 Metoclopramide Hcl (REGLAN) 10 Mg Tablet 1 TAB PO QID PRN for NAUSEA for 7 Days, #15 TAB 0 Refills before food and bedtime Prov: JEROME MORALES DO 01/30/20 Dicyclomine Hcl (DICYCLOMINE HCL) 20 Mg Tablet 1 TAB PO TID for abd cramping, #30 TAB 1 Refill Prov: JEROME MORALES DO 01/30/20 Hydrocodone Bit/Acetaminophen (NORCO 5-325 TABLET) 1 Each Tablet 1 TAB PO PRN Q6HRS PRN for PAIN, #10 TAB 0 Refills Prov: JEROME MORALES DO 01/30/20 Justification of Admission: Justification of Admission: Justification of Admission Dx: N/A (ARLINE SANTANA MD) Justification of Admission Dx: N/A (JEROME MORALES DO) ARLINE SANTANA MD Jan 30, 2020 05:32 JEROME MORALES DO Jan 30, 2020 06:07
[2020-01-30] MEDS ORDERED: KETOROLAC 30 MG/ML VIAL. IVP ONE (05:45)
[2020-01-30] MEDS ORDERED: FAMOTIDINE 20 MG/2 ML VIAL IVP ONE (05:45)
[2020-01-30] MEDS ORDERED: ONDANSETRON PF 4 MG/2 ML VIAL. IVP ONE (05:45)
[2020-01-30] MEDS ORDERED: IV RINGERS SOLUTION,LACTATED 1,000 ML IV SCH (05:45)
--- NOTE | 2020-01-30 05:59 | EKG ---
[address] [address] Test Date: 2020-01-30 Test Time: 05:49:26 Pat Name: ABDULAZIZ MO Department: Room: Gender: F Telemetry Nurse: : 1985 Requested By: ARLINE SANTANA Order Number: [id number] Reading MD: Measurements Intervals [place] Rate: 107 P: 30 ME: 148 QRS: 31 QRSD: 82 T: 15 QT: 342 QTc: 462 Interpretive Statements SINUS TACHYCARDIA OTHERWISE NORMAL ECG RI6.02 No previous ECG available for comparison
[2020-01-30 06:02] LABS: BASO # 0.1 x10^3/uL (0.0-0.2); BASO % 1 % (0-3); EOS # 0.1 x10^3/uL (0.0-0.7); EOS % 2 % (0-3); HEMOGLOBIN 14.7 g/dL (12.0-15.5); LYMPH # 2.5 x10^3/uL (1.0-4.8); LYMPH % 41 % (24-48); MEAN CORPUSCULAR HEMOGLOBIN 35 pg (25-35); MEAN CORPUSCULAR HGB CONC 35 g/dL (31-37); MEAN CORPUSCULAR VOLUME 100 fL (79-100); MONO # 0.3 x10^3/uL (0.0-1.1); MONO % 5 % (0-9); NEUT # 3.1 x10^3uL (1.8-7.7); NEUT % 51 % (31-73); PLATELET COUNT 197 x10^3/uL (140-400); RED BLOOD COUNT 4.22 x10^6/uL (3.50-5.40); RED CELL DISTRIBUTION WIDTH 13.1 % (11.5-14.5); WHITE BLOOD COUNT 6.1 x10^3/uL (4.0-11.0)
[2020-01-30 06:08] LABS: CALCIUM 7.8 mg/dL (8.5-10.1); GFR 63.5; POTASSIUM 3.7 mmol/L (3.5-5.1)
[2020-01-30 06:14] LABS: ALBUMIN 3.9 g/dL (3.4-5.0); BARBITURATES NEG (NEG); BENZODIAZEPINES NEG (NEG); CANNABINOIDS NEG (NEG); COCAINE NEG (NEG); DIRECT BILIRUBIN 0.1 mg/dL (0.0-0.2); METHADONE NEG (NEG); OPIATES NEG (NEG); PHENCYCLIDINE NEG (NEG); TOTAL BILIRUBIN 0.6 mg/dL (0.2-1.0); TOTAL PROTEIN 7.2 g/dL (6.4-8.2)
[2020-01-30 06:16] LABS: AMPHETAMINE/METHAMPHETAMINE NEG (NEG)
[2020-01-30 06:20] LABS: BACTERIA,URINE FEW /HPF (0-FEW); BILIRUBIN,URINE NEG (NEG); CLARITY,URINE CLEAR; COLOR,URINE YELLOW; GLUCOSE,URINE NEG (NEG); NITRITE,URINE NEG (NEG); UROBILINOGEN,URINE 0.2 mg/dL (0.2 mg/dL)
[2020-01-30 06:21] LABS: SQUAMOUS EPITHELIAL CELL,UR FEW /LPF
--- NOTE | 2020-01-30 06:31 | RAD ---
INDICATION: Reason: Severe lower abdomen pain / Spl. Instructions: / History: COMPARISON: CT abdomen from January 28, 2020 IMPRESSION: 3 views of the chest and abdomen obtained. Hypoexpanded examination of the lungs with mild interstitial prominence. This mild interstitial prominence could be secondary to crowding of the lung markings from hypoexpansion but mild pulmonary vascular congestion or small airway inflammation from pneumonitis can have this appearance. Cardiac silhouette is unremarkable. Surgical clips are upper quadrant which could be from post cholecystectomy changes. Air scattered throughout the large and small bowel in a grossly nonobstructive pattern. Electronically signed by: Darell Prieto MD (01/30/2020 6:29 AM) [id number]
[2020-01-30] MEDS ORDERED: DICYCLOMINE HCL 20 MG TABLET PO ONE (06:45)
[2020-01-30] MEDS ORDERED: METOCLOPRAMIDE HCL 10 MG/2 ML VIAL. IVP ONE (07:15)
[2020-01-30 07:29] VITALS: BP 127/88
--- NOTE | 2020-01-30 08:22 | RAD ---
US PELVIS History: Pelvic pain, right lower quadrant pain Comparison: None. Findings: Multiple transabdominal sonographic images of the pelvis are submitted. Uterus measured 8.7 x 3.8 x 6.5 cm. Endometrium measured 0.9 cm in thickness. Right ovary measured 3.1 x 2.8 x 1.7 cm with normal low resistance vascularity. Left ovary measured 4 x 2.9 x 2.5 cm with normal low resistance vascularity. There is a hypoechoic lesion of of the left ovary about 2.4 cm greatest dimension. Reportedly there was bowel in the area of pain. No free fluid is demonstrated. Impression: 1. Other than a small left ovarian cyst, no significant abnormality is demonstrated. Electronically signed by: Javid Padilla MD (01/30/2020 8:19 AM) [id number]
[2020-01-30] MEDS ORDERED: HYDR-3165 PO (09:03)
[2020-01-30] MEDS ORDERED: METR-34 PO (09:03)
[2020-01-30] MEDS ORDERED: METO10TA81 PO (09:03)
[2020-01-30] MEDS ORDERED: DICY20TA3 PO (09:03)
[2020-01-30] MEDS ORDERED: CIPR500T PO (17:52)
[2020-01-30] MEDS ORDERED: AMOX1TAB11 PO (17:52)
[2020-02-01 00:07] LABS: CHLAMYDIA PROBE Negative (Negative)
== END 2020-01-30 09:19 | disposition home or self-care (01) ==
LOC: ER 05:24
DX: N83.202 Unspecified ovarian cyst, left side (principal); R10.31 Right lower quadrant pain; F41.9 Anxiety disorder, unspecified; K21.9 Gastro-esophageal reflux disease without esophagitis; K58.9 Irritable bowel syndrome, unspecified; F17.210 Nicotine dependence, cigarettes, uncomplicated; Z87.442 Personal history of urinary calculi; Z87.440 Personal history of urinary (tract) infections; Z90.49 Acquired absence of other specified parts of digestive tract; Z98.890 Other specified postprocedural states; Z91.041 Radiographic dye allergy status; Z88.2 Allergy status to sulfonamides
CPT/HCPCS: 36415; 74022; 76856; 80048; 80076; 80307; 81001; 81025; 82150; 83690; 85025; 85610; 85730; 87491; 87591; 93005; 96361; 96365; 96375; 99285; J1885; J2405; J2765; J3010; J3490; J7120; Q0111

== ENCOUNTER 2020-01-30 14:53 | Inpatient (IN) | payer OTHER ==
[~2020-01-30] VITALS: Ht 165.1 cm; Wt 86.0 kg
[~2020-01-30 14:53] MED LIST changes: +DICY20TA3 PO; +METO10TA81 PO; +METR-34 PO
--- NOTE | 2020-01-30 15:25 | PHYS DOC ---
Past History Past Medical History: Anxiety, GERD, IBS, Kidney Stones, Ovarian Cyst, UTI Past Surgical History: Cholecystectomy, Smoking: Cigarettes Alcohol Use: Occasionally Drug Use: None General Adult EDM: Chief Complaint: ABDOMINAL PAIN HPI: HPI: Patient is a 34 year old female who presents for evaluation of right-sided lower abdominal pain. Symptoms have been progressing over the past 24 hours. Patient was seen and evaluated this morning in this ED for the similar complaint. She has had intermittent episodes of nausea vomiting and diarrhea. She has diminished appetite. Patient has CT scan from another ER visit 2 days ago which showed some mild colitis and a nonobstructing calculus but no hydroureter. Patient followed up at [facility] and was advised that since she has continued pain she should return to the ER. There is no reported fevers and chills. There is no reported black, bloody or tarry stools. Patient was tearful and in mild to moderate distress on arrival. Furthermore patient has sonogram which showed a left-sided ovarian cyst but no acute findings on her right lower abdomen Review of Systems: Review of Systems: Constitutional: Denies fever or chills Eyes: Denies change in visual acuity HENT: Denies nasal congestion or sore throat Respiratory: Denies cough or shortness of breath Cardiovascular: Denies chest pain or edema GI: has right lower abdominal pain, with intermittent nausea, vomiting and loose stools : Denies dysuria, no hematuria Musculoskeletal: Denies back pain or joint pain Integument: Denies rash Neurologic: Denies headache, focal weakness or sensory changes Endocrine: Denies polyuria or polydipsia Lymphatic: Denies swollen glands Psychiatric: Denies depression or anxiety Heart Score: Risk Factors: Risk Factors: DM, Current or recent (<one month) smoker, HTN, HLP, family history of CAD, obesity. Risk Scores: Score 0 - 3: 2.5% MACE over next 6 weeks - Discharge Home Score 4 - 6: 20.3% MACE over next 6 weeks - Admit for Clinical Observation Score 7 - 10: 72.7% MACE over next 6 weeks - Early Invasive Strategies Allergies: Allergies: Allergies Coded Allergies Type Severity Reaction Last Updated Verified Iodinated Contrast Media Allergy Severe Anaphylaxis 01/30/20 Yes Sulfa (Sulfonamide Antibiotics) Allergy Unknown 01/30/20 Yes Physical Exam: PE: Constitutional: Well developed, well nourished, mild to moderate acute distress, non-toxic appearance. [] HENT: Normocephalic, atraumatic, bilateral external ears normal, oropharynx moist, no oral exudates, nose normal. [] Eyes: PERRL, EOMI, conjunctiva normal, no discharge. [] Neck: Normal range of motion, no tenderness, supple, no stridor. [] Cardiovascular:Heart rate regular rhythm, no murmur [] Lungs & Thorax: Bilateral breath sounds clear to auscultation [] Abdomen: Bowel sounds normal, soft, mild tenderness right lower abdomen, no masses, no pulsatile masses. [] Skin: Warm, dry, no erythema, no rash. [] Back: No tenderness, no CVA tenderness. [] Extremities: No tenderness, no cyanosis, ROM intact, no edema. [] Neurologic: Alert and oriented, normal motor function, normal sensory function, no focal deficits noted. [] Psychologic: Affect normal, judgement normal, mood anxious. [] Current Patient Data: Labs: CBC, CMP, lipase, urinalysis and test were done earlier today. Results were unremarkable EKG: EKG: [] Radiology/Procedures: Radiology/Procedures: [][place] [address] IMAGING REPORT Signed PATIENT: ABDULAZIZ MO VACCOUNT: [id number] : 1985 LOCATION: ER AGE: 34 SEX: F EXAM STATUS: REG ER ORD. PHYSICIAN: JEROME MORALES DO REASON: pelvic pain/RLQ pain PROCEDURE: US PELVIS US PELVIS History: Pelvic pain, right lower quadrant pain Comparison: None. Findings: Multiple transabdominal sonographic images of the pelvis are submitted. Uterus measured 8.7 x 3.8 x 6.5 cm. Endometrium measured 0.9 cm in thickness. Right ovary measured 3.1 x 2.8 x 1.7 cm with normal low resistance vascularity. Left ovary measured 4 x 2.9 x 2.5 cm with normal low resistance vascularity. There is a hypoechoic lesion of of the left ovary about 2.4 cm greatest dimension. Reportedly there was bowel in the area of pain. No free fluid is demonstrated. Impression: 1. Other than a small left ovarian cyst, no significant abnormality is demonstrated. Electronically signed by: Denice Kamara MD (01/30/2020 8:19 AM) [id number] DICTATED AND SIGNED BY: DENICE KAMARA MD DATE: 01/30/20818 CC: J CARLOS WONG; JEROME MORALES DO ~ Course & Med Decision Making: Course & Med Decision Making Pertinent Labs and Imaging studies reviewed. (See chart for details) [] Dragon Disclaimer: Dragon Disclaimer: This electronic medical record was generated, in whole or in part, using a voice recognition dictation system. Departure Departure: Impression: Primary Impression: Right lower quadrant abdominal pain Additional Impressions: History of IBS History of colitis Disposition: ADMITTED INPATIENT Admitting Physician: Satish Horn Condition: STABLE Referrals: J CARLOS WONG (PCP) Justification of Admission: Justification of Admission: Justification of Admission Dx: N/A JEROME MORALES DO Jan 30, 2020 15:25
[2020-01-30] MEDS ORDERED: METOCLOPRAMIDE HCL 10 MG/2 ML VIAL. IVP ONE (15:30)
[2020-01-30] MEDS ORDERED: IV NORMAL SALINE 1,000ML 1,000 ML IV ONE (15:30)
[2020-01-30] MEDS ORDERED: ONDANSETRON PF 4 MG/2 ML VIAL. IVP PRN (15:45)
[2020-01-30] MEDS ORDERED: AMOX1TAB11 PO (17:52)
[2020-01-30] MEDS ORDERED: CIPR500T PO (17:52)
[2020-01-30] MEDS: MORPHINE SULFATE 2 MG/ML DISP.SYRIN. IVP PRN ×2 (17:53→20:55)
[2020-01-30 18:02] LABS: BASO % 0 % (0-3); EOS # 0.1 x10^3/uL (0.0-0.7); EOS % 2 % (0-3); HEMATOCRIT 35.2 % (36.0-47.0); HEMOGLOBIN 12.3 g/dL (12.0-15.5); LYMPH # 1.6 x10^3/uL (1.0-4.8); LYMPH % 46 % (24-48); MEAN CORPUSCULAR HEMOGLOBIN 35 pg (25-35); MEAN CORPUSCULAR HGB CONC 35 g/dL (31-37); MEAN CORPUSCULAR VOLUME 99 fL (79-100); MONO # 0.2 x10^3/uL (0.0-1.1); MONO % 5 % (0-9); NEUT # 1.7 x10^3uL (1.8-7.7); NEUT % 47 % (31-73); PLATELET COUNT 153 x10^3/uL (140-400); RED BLOOD COUNT 3.55 x10^6/uL (3.50-5.40); RED CELL DISTRIBUTION WIDTH 12.7 % (11.5-14.5); WHITE BLOOD COUNT 3.6 x10^3/uL (4.0-11.0)
[2020-01-30 18:40] VITALS: BP 137/99
[2020-01-30] MEDS: METOCLOPRAMIDE HCL 10 MG/2 ML VIAL. IVP SCH (20:54)
[2020-01-30 21:00] VITALS: BP 116/78
[2020-01-31] MEDS: MORPHINE SULFATE 2 MG/ML DISP.SYRIN. IVP PRN ×6 (03:26→15:09)
[2020-01-31] MEDS: ONDANSETRON PF 4 MG/2 ML VIAL. IVP PRN ×2 (03:32→15:07)
[2020-01-31 06:05] VITALS: BP 136/93
[2020-01-31] MEDS: METOCLOPRAMIDE HCL 10 MG/2 ML VIAL. IVP SCH ×4 (08:23→20:06)
--- NOTE | 2020-01-31 10:35 | HP ---
ADMIT DATE: 01/31/2020 ATTENDING PHYSICIAN: Dr. Kolb. CHIEF COMPLAINT: Abdominal pain and nausea. HISTORY OF PRESENT ILLNESS: The patient is a 34-year-old female admitted through the ED with significant progressive abdominal pain, right lower quadrant; intermittent episodes of nausea, vomiting and diarrhea. Diminished appetite. CT scan was done 2 days ago, which showed mild colitis, nonobstructing calculus, but no hydroureter. She has been followed at [facility]. She is not any better. There is a strong anxiety and depression component. She also is under quite a bit of stress. She is a smoker. She is admitted then for further treatment and evaluation. I suspect she had a recent viral gastroenteritis aggravating her irritable bowel syndrome. PAST MEDICAL HISTORY: Significant for anxiety, depression, gastroesophageal reflux disease, kidney stones, ovarian cyst and 2 C-sections. She has also had a laparoscopic cholecystectomy. SOCIAL HISTORY: She is a smoker. No alcohol use. Minimal caffeine use. ALLERGIES: She has allergies to IODINE CONTRAST and SULFA DRUGS, exact reaction is unclear. FAMILY HISTORY: Father at age 62 of hypertensive heart disease. Mother has morbid obesity and also has heart disease and diabetes. She is to her current . She is a dependent at the [facility]. She moved here 2 years ago. From her first marriage, she has 2 daughters, ages 12 and 14 who lives with her father. She does not have custody. I asked for further details, her response is "I don't want to go into it." REVIEW OF SYSTEMS: Significant for irritable bowel syndrome with alternating constipation and diarrhea. 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 She is under a lot of stress. She is very tearful, in quyd-ge-vthwmzal distress on arrival. There are no black tarry stools. As I said, she has had ER evaluation here and at [facility]. All other systems reviewed and turned to be negative. PHYSICAL EXAMINATION: GENERAL: When I saw her, this is a pleasant young female. INITIAL VITAL SIGNS: Showed a blood pressure of 136/93, pulse is 81 and regular, temperature 97.5 degrees Fahrenheit, oxygen saturation 97% on room air. HEENT: Head is without trauma. Pupils are reactive. Sclerae nonicteric. Oropharynx clear. NECK: Supple, no bruits. LUNGS: Otherwise clear. CARDIOVASCULAR: Showed regular heart tones. No gallops, no murmurs. Peripheral pulses are palpable and full. ABDOMEN: Soft, nontender to palpation. There is minimal guarding. There is no rebound tenderness. Bowel sounds are normoactive. There are no masses palpated. EXTREMITIES: Showed no cyanosis or edema. NEUROLOGIC: Focally intact. Speech is fluent. No focal deficits. SKIN: Warm and dry. PERTINENT LABORATORY STUDIES: Hemoglobin is 12.3 g/dL with white count of 3600. Chemistry panel from outside hospital was unremarkable. Recent lab work done here showed a normal creatinine and BUN. Creatinine was 1.0 mg/dL, nonfasting blood sugar 106. Liver panel within normal range. Amylase and lipase were normal. ASSESSMENT: 1. A 34-year-old female with profound abdominal pain and nausea related to irritable bowel syndrome. 2. Underlying depression with anxiety. 3. History of cholecystectomy. 4. History of 2 C-sections. 5. Recent gastroenteritis, which is self-limiting. PLAN: 1. IV hydration. 2. Pain and nausea control. 3. Advance diet as tolerated. 4. Long discussion regarding IBS whether she has sepsis or not remains to be seen. LIV KOLB MD DR: AARON/patrick JOB#: [id number] / [id number]
[2020-01-31 10:45] VITALS: BP 126/87
[2020-01-31 15:12] VITALS: BP 113/78
[2020-01-31] MEDS: MORPHINE SULFATE 2 MG/ML DISP.SYRIN. IV PRN (20:07)
[2020-01-31 20:08] VITALS: BP 124/87
[2020-01-31 23:13] VITALS: BP 113/76
[2020-02-01] MEDS: MORPHINE SULFATE 2 MG/ML DISP.SYRIN. IV PRN ×3 (00:32→08:22)
[2020-02-01] MEDS: ONDANSETRON PF 4 MG/2 ML VIAL. IVP PRN (00:40)
[2020-02-01 06:11] VITALS: BP 116/77
[2020-02-01] MEDS: METOCLOPRAMIDE HCL 10 MG/2 ML VIAL. IVP SCH ×2 (08:21→11:49)
--- NOTE | 2020-02-01 12:28 | DS ---
DATE OF DISCHARGE: 02/01/2020 ATTENDING PHYSICIAN: Dr. Kolb. FINAL DISCHARGE DIAGNOSES: 1. Severe intractable abdominal pain. 2. Irritable bowel syndrome. 3. Recent self-limiting episode of colitis. 4. Underlying anxiety with depression. 5. History of previous cholecystectomy. 6. Gastroenteritis with mild dehydration. HISTORY AND PHYSICAL: This 34-year-old female was admitted from the ED with a 2-day history of significant progressive abdominal pain, right lower quadrant; intermittent episodes of nausea, vomiting, diarrhea, diminished appetite and she was admitted for pain and nausea control. A CT scan done at another local ED 2 days ago showed mild colitis with some thickening of the colon, nonobstructing calculus of the kidneys, but no hydroureter. She is not any better. She is still having lots of symptoms, unable to hold any food down. She is admitted for symptom control. PAST MEDICAL HISTORY: Significant for anxiety, depression, gastroesophageal reflux disease, kidney stones, and IBS. PAST SURGICAL HISTORY: She also has a history of laparoscopic cholecystectomy. SOCIAL HISTORY: No alcohol use. She is a smoker. ALLERGIES: IODINE CONTRAST and SULFA DRUGS. PHYSICAL EXAMINATION: Please see the dictated note. PERTINENT LABORATORY AND X-RAY STUDIES: Numerous imaging studies were done. From our ER, vaginal ultrasound showed small left ovarian cyst. No other abnormalities demonstrated. Acute abdomen series showed surgical clips from previous gallbladder surgery. No obstructive series identified, air scattered throughout the large and small bowel, grossly nonobstructive pattern. Abdominal CT and pelvic CT were reviewed. There is no evidence of obstruction. There is some minimal sigmoid colon wall thickening which may represent colitis, but nondiagnostic. LABORATORY STUDIES: Her hemoglobin was 12.3 g/dL with white count of 3600. BUN 16, creatinine 1.0 mg/dL. Electrolytes within normal range. Nonfasting blood sugar 106. Amylase and lipase were normal. COURSE IN THE HOSPITAL: The patient was admitted with a diagnosis of severe lower abdominal pain related to recent episode of self-limiting gastroenteritis, pain and nausea medicines were continued. She responded well to Reglan as well as intravenous morphine. Eventually, this was switched to Percocet. I reassured her that her symptoms were related to a self-limiting condition. We do not have GI consultation here. She does have a scheduled appointment through [facility] with a GI specialist on February 12. I inquired whether she would want us to consult our GI doctor see her before then, she declined. She will go and follow up with that appointment. On the third hospital day, she was feeling better. She wanted to go home. I felt this is reasonable. I wrote a prescription then for Percocet 10/325 one every 6 hours p.r.n. pain, Reglan 10 mg t.i.d. and a work release through 02/05/2020. She will continue her home medicine including Bentyl and Zofran as ordered. For now, we stopped the Augmentin and Cipro. Prior to discharge, there was a Clostridium difficile toxin sent off and that is unfortunately not available at the time of discharge. Clinically, she does not have any signs of C. diff enterocolitis. Certainly, we will follow up on this if it returns positive. She will follow up with her regular primary care physician as scheduled. The patient was then discharged from our hospital in stable condition with explicit instructions and followup care. LIV KOLB MD DR: AARON/patrick JOB#: [id number] / [id number] ecc ,
== END 2020-02-01 12:03 | disposition home or self-care (01) | DRG 392 ==
LOC: ER 14:53 → 1 SOUTH 16:07
PROVIDERS: ADMIT Hospitalist; ATTEND Hospitalist
DX: K58.0 Irritable bowel syndrome with diarrhea (principal); K21.9 Gastro-esophageal reflux disease without esophagitis; E86.0 Dehydration; F17.200 Nicotine dependence, unspecified, uncomplicated; F41.8 Other specified anxiety disorders; N83.202 Unspecified ovarian cyst, left side; Z82.49 Family history of ischemic heart disease and other diseases of the circulatory system; Z83.3 Family history of diabetes mellitus; Z87.442 Personal history of urinary calculi; Z90.49 Acquired absence of other specified parts of digestive tract; Z87.440 Personal history of urinary (tract) infections; Z79.899 Other long term (current) drug therapy; Z88.8 Allergy status to other drugs, medicaments and biological substances; Z88.2 Allergy status to sulfonamides
CPT/HCPCS: 36415; 85025; 87493; 96361; 96374; 96375; J2270; J2405; J2765; J3010; 99285-25; J7030

== ENCOUNTER 2020-08-15 01:02 | Emergency (ER) | payer OTHER ==
[~2020-08-15] VITALS: Ht 165.1 cm; Wt 86.0 kg
[~2020-08-15 01:02] MED LIST changes: +AMOX1TAB11 PO; +CIPR500T2 PO
[2020-08-15 01:22] VITALS: BP 130/91
[2020-08-15] MEDS ORDERED: IBUPROFEN 600 MG TABLET. PO ONE (01:30)
[2020-08-15] MEDS ORDERED: ACETAMINOPHEN 500 MG TABLET PO ONE (01:30)
--- NOTE | 2020-08-15 01:34 | PHYS DOC ---
Past History Past Medical History: Anxiety, GERD, IBS, Kidney Stones, Ovarian Cyst, UTI, Other Additional Past Medical Histor: ULCERS Past Surgical History: Cholecystectomy, , Other Additional Past Surgical Histo: LAPROSCOPIC Smoking: Cigarettes Alcohol Use: Occasionally Drug Use: None Adult General Chief Complaint Chief Complaint: KNEE INJURY HPI HPI Patient is an otherwise healthy 34-year-old female who presents with right knee pain. States she was at work a couple hours ago, tripped and fell forward onto her right knee. States she had almost immediate pain, 7 out of 10, sharp in nature. States she is able to ambulate but it does cause her discomfort. Denies any other injuries. States she did not take anything for the pain. Requesting work note. Review of Systems Review of Systems Review of systems otherwise unremarkable except noted in HPI Allergies Allergies Allergies Coded Allergies Type Severity Reaction Last Updated Verified Iodinated Contrast Media Allergy Severe Anaphylaxis 01/30/20 Yes Sulfa (Sulfonamide Antibiotics) Allergy Unknown 01/30/20 Yes Physical Exam Physical Exam Constitutional: Well developed, well nourished, no acute distress, non-toxic appearance. [] Eyes: conjunctiva normal, no discharge. [] Neck: Normal range of motion, no tenderness, Cardiovascular:Heart rate regular rhythm, no murmur [] Back: No tenderness, Extremities: Patient with tenderness around the entire right knee. Neurovascular exam intact. Neurologic: Alert and oriented X 3, normal motor function, normal sensory function, no focal deficits noted. [] Psychologic: Affect normal, judgement normal, mood normal. [] EKG EKG [] Radiology/Procedures Radiology/Procedures [] Heart Score Risk Factors: Risk Factors: DM, Current or recent (<one month) smoker, HTN, HLP, family history of CAD, obesity. Risk Scores: Risk Factors: DM, Current or recent (<one month) smoker, HTN, HLP, family history of CAD, obesity. Course & Med Decision Making Course & Med Decision Making Patient is a 34-year-old female who presents with right knee pain after a fall Vital signs not concerning. Physical exam noted above. Started on Tylenol, ibuprofen and ice. No obvious acute osseous abnormalities on imaging. Probably a little fluid, suggesting soft tissue injury. Imaging with no acute osseous abnormality. Placed in a knee immobilizer. Given crutches. Advised to limit ambulation until seen by her primary care or orthopedic surgeon. Advised to follow-up first thing Monday morning with her primary care physician. Advised on pain control at home. Advised on ambulation. Advised to come back to the ED with new or concerning symptoms. Patient grateful, verbalized understanding and agreed with plan of discharge. [] Dragon Disclaimer Dragon Disclaimer This electronic medical record was generated, in whole or in part, using a voice recognition dictation system. Departure Departure: Impression: Primary Impression: Knee pain Additional Impression: Fall Disposition: 01 DC HOME SELF CARE/HOMELESS Condition: GOOD Referrals: J CARLOS WONG (PCP) Patient Instructions: Knee Immobilizer, [id number]-ro-[id number], RICE - Routine Care for Injuries Additional Instructions: Please read all the attached information. Please continue to use Tylenol, ibuprofen and ice as needed at home for pain control. Please keep your knee immobilizer on is much as you can and only take it off if absolutely necessary or when showering. If showering please have someone with you to help protect you from falling again. Please use your crutches as instructed. Please call your primary care physician first thing Monday to discuss your ED visit and set up a post ER follow-up visit for further evaluation and need for further imaging. Please come back to the ED with new or concerning symptoms. Problem Qualifiers JEROME MCFADDEN MD Aug 15, 2020 01:33
[2020-08-15] MEDS ORDERED: oxyCODONE IR 5 MG TABLET PO PRN ×2 (02:15→03:00)
--- NOTE | 2020-08-15 03:11 | RAD ---
4 view right knee radiographs 08/15/2020 CLINICAL HISTORY: Fall with injury to the right knee. AP, lateral, oblique and sunrise digital radiographs of the right knee were obtained. No fracture or dislocation of the right knee is seen. There is no radiographic evidence of a joint effusion. IMPRESSION: No fracture or dislocation of the right knee is seen. Electronically signed by: Trip Tijerina MD (08/15/2020 3:08 AM) [id number]
== END 2020-08-15 03:10 | disposition home or self-care (01) ==
LOC: ER 01:02
DX: M25.561 Pain in right knee (principal); F41.9 Anxiety disorder, unspecified; K21.9 Gastro-esophageal reflux disease without esophagitis; K58.9 Irritable bowel syndrome, unspecified; F17.210 Nicotine dependence, cigarettes, uncomplicated; Z87.442 Personal history of urinary calculi; Z87.440 Personal history of urinary (tract) infections; Z91.041 Radiographic dye allergy status; Z88.2 Allergy status to sulfonamides; W01.0XXA Fall on same level from slipping, tripping and stumbling without subsequent striking against object, initial encounter; Y93.89 Activity, other specified; Y92.89 Other specified places as the place of occurrence of the external cause; Y99.8 Other external cause status
CPT/HCPCS: 29505; 73564; 99284

== ENCOUNTER 2021-07-15 11:01 | Emergency (ER) | payer OTHER ==
[~2021-07-15] VITALS: Ht 165.1 cm; Wt 86.0 kg
[~2021-07-15 11:01] MED LIST changes: +DICY20TA PO; -DICY20TA3 PO
[2021-07-15 11:09] VITALS: BP 150/99
--- NOTE | 2021-07-15 11:32 | PHYS DOC ---
Past History Past Medical History: Anxiety, GERD, IBS, Kidney Stones, Ovarian Cyst, UTI, Other Additional Past Medical Histor: ULCERS, PTSD Past Surgical History: Cholecystectomy, , Other Additional Past Surgical Histo: LAPROSCOPIC Smoking: Cigarettes Alcohol Use: Occasionally Drug Use: None Adult General Chief Complaint Chief Complaint: DEPRESSION HPI HPI Patient is a 35-year-old female presenting via EMS for anxiety and depression. This is an acute on chronic issue. She has longstanding history of anxiety depression and PTSD for which she is being treated in outpatient setting for. She reports she moved here approximately 1 year ago to be with her but approximately 6 months ago, they and she has been living on her own ever since. She reports she stopped taking antidepressants shortly after but has been faithful with her therapist in outpatient setting. Nonetheless, she cites increased social stressors recently after drinking yesterday evening, she felt more tearful and depressed than usual and is concerned that if her symptoms keep going she might become suicidal prompting her to call EMS for transport to our facility. Admits she has history of suicidal attempts by overdose in the past, also admits to distant history of self-harm but is not done any of this in over 10 years. Review of Systems Review of Systems Fourteen body systems of review of systems have been reviewed. See HPI for pertinent positives and negative responses, other marquez all other systems are negative, non-pertinent or non-contributory Allergies Allergies Allergies Coded Allergies Type Severity Reaction Last Updated Verified Iodinated Contrast Media Allergy Severe Anaphylaxis 01/30/20 Yes Sulfa (Sulfonamide Antibiotics) Allergy Unknown 01/30/20 Yes Physical Exam Physical Exam Constitutional: Well developed, hysterical and in moderate distress on arrival, non-toxic appearance. HENT: Normocephalic, atraumatic, bilateral external ears normal, oropharynx moist, no oral exudates, nose normal. Eyes: PERRLA, EOMI, conjunctiva normal, no discharge. Neck: Normal range of motion, no tenderness, supple, no stridor. Cardiovascular: Heart rate tachycardic, sinus rhythm, no murmurs rubs or gallops Lungs & Thorax: Bilateral breath sounds clear to auscultation Abdomen: Bowel sounds normal, soft, no tenderness, no masses, no pulsatile masses. Nonsurgical abdomen, no peritoneal signs Skin: Warm, dry, no erythema, no rash. Back: No tenderness, no CVA tenderness. Extremities: No tenderness, no cyanosis, no clubbing, ROM intact, no edema. Neurologic: Alert and oriented X 3, grossly normal motor & sensory function, no focal deficits noted. Psychologic: Tearful affect, depressed mood Current Patient Data Vital Signs Vital Signs Date Time Temp Pulse Resp B/P (MAP) Pulse Ox O2 Delivery O2 Flow Rate FiO2 07/15/21 11:09 98.3 133 26 150/99 (116) 100 Room Air Lab Results Laboratory Tests Test 07/15/21 11:38 07/15/21 11:56 07/15/21 12:03 White Blood Count 6.2 x10^3/uL Red Blood Count 4.12 x10^6/uL Hemoglobin 14.8 g/dL Hematocrit 42.6 % Mean Corpuscular Volume 104 fL Mean Corpuscular Hemoglobin 36 pg Mean Corpuscular Hemoglobin Concent 35 g/dL Red Cell Distribution Width 14.5 % Platelet Count 188 x10^3/uL Neutrophils (%) (Auto) 77 % Lymphocytes (%) (Auto) 18 % Monocytes (%) (Auto) 4 % Eosinophils (%) (Auto) 0 % Basophils (%) (Auto) 1 % Neutrophils # (Auto) 4.8 x10^3uL Lymphocytes # (Auto) 1.1 x10^3/uL Monocytes # (Auto) 0.2 x10^3/uL Eosinophils # (Auto) 0.0 x10^3/uL Basophils # (Auto) 0.0 x10^3/uL Sodium Level 138 mmol/L Potassium Level 3.6 mmol/L Chloride Level 102 mmol/L Carbon Dioxide Level 16 mmol/L Anion Gap 20 Blood Urea Nitrogen 18 mg/dL Creatinine 0.9 mg/dL Estimated GFR (Cockcroft-Gault) 71.3 Glucose Level 82 mg/dL Calcium Level 7.8 mg/dL Troponin I High Sensitivity 4 ng/L Salicylates Level 2.7 mg/dL Salicylate Last Dose Date Unknown Salicylate Last Dose Time Unknown Acetaminophen Level < 2.0 mcg/mL Acetaminophen Last Dose Date Unknown Acetaminophen Last Dose Time Unknown Ethyl Alcohol Level 260 mg/dL Urine Collection Type Unknown Urine Color Yellow Urine Clarity Cloudy Urine pH 6.0 Urine Specific [place] 1.015 Urine Protein 30 mg/dl Urine Glucose (UA) Neg mg/dL Urine Ketones (Stick) Neg mg/dL Urine Blood Small Urine Nitrite Neg Urine Bilirubin Neg Urine Urobilinogen Dipstick 0.2 mg/dL Urine Leukocyte Esterase Neg Urine RBC 1-2 /HPF Urine WBC 11-20 /HPF Urine Squamous Epithelial Cells Many /LPF Urine Bacteria Mod /HPF Urine Opiates Screen Neg Urine Methadone Screen Neg Urine Barbiturates Neg Urine Phencyclidine Screen Neg Urine Amphetamine/Methamphetamine Neg Urine Benzodiazepines Screen Neg Urine Cocaine Screen Neg Urine Cannabinoids Screen Neg Urine Ethyl Alcohol Pos Bedside Urine HCG, Qualitative hcg negative Current Medications Medications (Trade) Dose Ordered Sig/Noemy Route PRN Reason Start Time Stop Time Status Last Admin Dose Admin Lorazepam (Ativan) 1 mg 1X ONCE PO 07/15/21 11:45 07/15/21 11:46 DC 07/15/21 12:07 EKG EKG EKG ordered and interpreted by myself at 1210 hrs. as sinus tachycardia at 119 bpm, unremarkable intervals, no axis deviation, no acute ischemic findings, no STEMI Radiology/Procedures Radiology/Procedures [] Heart Score C/O Chest Pain: No HEART Score for Chest Pain: HEART Score for Chest Pain Response (Comments) Value History Slighlty/Non-Suspicious 0 ECG Normal 0 Age < 45 0 Risk Factors No Risk Factors 0 Troponin < Normal Limit 0 Total 0 Risk Factors: Risk Factors: DM, Current or recent (<one month) smoker, HTN, HLP, family history of CAD, obesity. Risk Scores: Risk Factors: DM, Current or recent (<one month) smoker, HTN, HLP, family history of CAD, obesity. Course & Med Decision Making Course & Med Decision Making ABCs unremarkable besides tachycardia HPI physical exam and comprehensive ER work-up nonconcerning for any emergent or surgical issues, patient medically cleared Patient evaluated by qualified mental health professional who reviewed any appropriate supporting documentation and previous available medical records and feels patient does not meet criteria for admission to a mental health facility. Please refer to qualified mental health professional's documentation for details regarding this decision. Will discharge patient with appropriate mental health resources and follow up. Dragon Disclaimer Dragon Disclaimer This electronic medical record was generated, in whole or in part, using a voice recognition dictation system. Departure Departure: Impression: Primary Impression: Anxiety Additional Impressions: Depression PTSD (post-traumatic stress disorder) Disposition: HOME / SELF CARE / HOMELESS Condition: STABLE Referrals: J CARLOS WONG (PCP) Additional Instructions: As discussed prior to ER departure, your vitals physical exam and comprehensive ER work-up were nonconcerning for any emergent or surgical issues. You were seen and evaluated by our behavioral health specialist and all were in favor for discharge home with safety plan in place. If any concerning signs symptoms such as thoughts of self-harm or harming others arise prior to outpatient follow-up please do not hesitate to come back for repeat evaluation. It was pleasure to take care of you and I wish you the best going forward Problem Qualifiers CARTER GONZALEZ DO Jul 15, 2021 11:32
[2021-07-15] MEDS ORDERED: LORazepam 1 MG TABLET PO ONE (11:45)
[2021-07-15 12:02] LABS: CALCIUM 7.8 mg/dL (8.5-10.1); CREATININE 0.9 mg/dL (0.6-1.0); GFR 71.3; POTASSIUM 3.6 mmol/L (3.5-5.1)
[2021-07-15 12:03] LABS: BASO % 1 % (0-3); EOS % 0 % (0-3); HEMATOCRIT 42.6 % (36.0-47.0); HEMOGLOBIN 14.8 g/dL (12.0-15.5); LYMPH # 1.1 x10^3/uL (1.0-4.8); LYMPH % 18 % (24-48); MEAN CORPUSCULAR HEMOGLOBIN 36 pg (25-35); MEAN CORPUSCULAR HGB CONC 35 g/dL (31-37); MEAN CORPUSCULAR VOLUME 104 fL (79-100); MONO # 0.2 x10^3/uL (0.0-1.1); MONO % 4 % (0-9); NEUT # 4.8 x10^3uL (1.8-7.7); NEUT % 77 % (31-73); PLATELET COUNT 188 x10^3/uL (140-400); RED BLOOD COUNT 4.12 x10^6/uL (3.50-5.40); RED CELL DISTRIBUTION WIDTH 14.5 % (11.5-14.5); WHITE BLOOD COUNT 6.2 x10^3/uL (4.0-11.0)
[2021-07-15 12:21] LABS: ACETAMIN < 2.0 mcg/mL (10-30); ETHANOL 260 mg/dL (0-10); SALIC 2.7 mg/dL (2.8-20.0)
[2021-07-15 12:46] LABS: BARBITURATES NEG (NEG); BENZODIAZEPINES NEG (NEG); CANNABINOIDS NEG (NEG); COCAINE NEG (NEG); METHADONE NEG (NEG); OPIATES NEG (NEG); PHENCYCLIDINE NEG (NEG)
[2021-07-15 12:50] LABS: AMPHETAMINE/METHAMPHETAMINE NEG (NEG)
--- NOTE | 2021-07-15 12:54 | EKG ---
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
[2021-07-15 13:12] LABS: BILIRUBIN,URINE NEG (NEG); CLARITY,URINE CLOUDY; COLOR,URINE YELLOW; GLUCOSE,URINE NEG (NEG); NITRITE,URINE NEG (NEG); UROBILINOGEN,URINE 0.2 mg/dL (0.2 mg/dL)
[2021-07-15 13:13] LABS: BACTERIA,URINE MOD /HPF (0-FEW); SQUAMOUS EPITHELIAL CELL,UR MANY /LPF
== END 2021-07-15 14:52 | disposition home or self-care (01) ==
LOC: ER 11:01 → EEVIPCON 11:01 → ER 14:52
DX: F41.9 Anxiety disorder, unspecified (principal); F32.9 Major depressive disorder, single episode, unspecified; F43.10 Post-traumatic stress disorder, unspecified; K21.9 Gastro-esophageal reflux disease without esophagitis; F17.210 Nicotine dependence, cigarettes, uncomplicated; Z87.442 Personal history of urinary calculi; Z87.440 Personal history of urinary (tract) infections; Z91.041 Radiographic dye allergy status; Z88.2 Allergy status to sulfonamides
CPT/HCPCS: 36415; 80048; 80307; 80329; 81001; 81025; 84484; 85025; 87086; 87186; 93005; 99284; G0480